=== PATIENT | male | born 1995 | race Caucasian/White ===

== ENCOUNTER → 2018-08-18 | Outpatient (CLI) | payer BC ==
[~2018-08-18] MED LIST: PHENERGAN 25 TA25 MG PO
== END ==
LOC: COL.RAD 12:44
DX: K82.8 Other specified diseases of gallbladder (principal)

== ENCOUNTER → 2018-09-09 | Outpatient (CLI) | payer BC | LOC: COL.RAD 07:22 | DX: R10.11 Right upper quadrant pain (principal) | CPT/HCPCS: A9537 ==